=== PATIENT | female | born 1965 | race Caucasian/White ===

== ENCOUNTER 2017-06-24 13:31 | Emergency (ER) | payer OTHER ==
[~2017-06-24] VITALS: Ht 172.7 cm; Wt 121.0 kg
[2017-06-24 13:56] LABS: HEMATOCRIT 40.5 % (34.6-47.8); WHITE BLOOD COUNT 7.8 x10^3/uL (3.4-10)
[2017-06-24] MEDS ORDERED: ONDANSETRON 2MG/ML, 2ML ONE (13:58)
[2017-06-24] MEDS ORDERED: OMNIPAQUE 350 MG/ML, 100ML BOTTLE ONE (14:26)
[2017-06-24] MEDS ORDERED: ONDANSETRON 2MG/ML, 2ML IVPush ONE (15:00)
[2017-06-24] MEDS ORDERED: ASPIRIN 325 MG TABLET PO ONE (15:08)
[2017-06-24 16:37] VITALS: BP 122/48
[2017-06-24] MEDS ORDERED: ASPIRIN 325 MG TABLET ONE (17:16)
== END 2017-06-24 17:49 | disposition short-term general hospital (02) ==
LOC: ED 14:42
DX: I63.511 Cerebral infarction due to unspecified occlusion or stenosis of right middle cerebral artery (principal); Z79.82 Long term (current) use of aspirin
CPT/HCPCS: 36415; 70450; 70496; 70498; 80047; 85025; 85610; 85730; 93005; 96374; 99291; J2405; Q9967